=== PATIENT | female | born 1970 | race Caucasian/White ===

== ENCOUNTER 2018-06-06 10:01 | Emergency (ER) | payer OTHER ==
[~2018-06-06] VITALS: Ht 170.2 cm; Wt 97.5 kg
[2018-06-06 10:10] VITALS: BP 159/95
[2018-06-06] MEDS ORDERED: PREDNISONE 10 M10 MG PO (11:00)
[2018-06-06] MEDS ORDERED: VALTREX 500 MG500 M1 PO (11:00)
== END 2018-06-06 11:01 | disposition home or self-care (01) ==
LOC: ER 10:01
DX: G51.0 Bell's palsy (principal)

== ENCOUNTER 2018-11-30 20:25 | Emergency (ER) | payer OTHER ==
[~2018-11-30] VITALS: Ht 170.2 cm; Wt 90.7 kg
[~2018-11-30 20:25] MED LIST: PREDNISONE 10 M10 MG PO; VALTREX 500 MG500 M1 PO
[2018-11-30] MEDS ORDERED: NORCO 7.5-3251 EACH PO (22:21)
[2018-11-30 22:42] VITALS: BP 134/86
== END 2018-11-30 22:43 | disposition home or self-care (01) ==
LOC: ER 20:25
DX: M25.561 Pain in right knee (principal); Z98.890 Other specified postprocedural states